=== PATIENT | male | born 2000 | race African-American/Black ===

== ENCOUNTER 2018-05-19 20:57 | Emergency (ER) | payer MEDICAID ==
--- NOTE | 2018-05-19 21:19 | EDM.PDOC ---
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 Is still bothering him, but he has not had the recommended surgery yet. Denies swelling. Knee clicks and pops often. No giving out. 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 - Related Data Allergies Allergy/AdvReac Type Severity Reaction Status Date / Time shellfish Allergy Hives Uncoded 05/19/18 21:20 Home Meds: Home Meds NK [No Known Home Meds] 05/19/18 [History] Review of Systems - Review of Systems Review Of Systems: See Below Constitutional: Reports: No Symptoms Musculoskeletal: Reports: Joint Pain (L knee) Skin: Reports: No Symptoms Neurological: Reports: No Symptoms ED EXAM, GENERAL - Physical Exam Exam: See Below Exam Limited By: No Limitations General Appearance: Alert, WD/WN, No Apparent Distress, Obese Extremities: Normal Inspection, Normal Range of Motion, Non-Tender, No Pedal Edema, Other (No clicking with flexion/extension while the foot is either externally or internally rotated. No joint line tenderness. No laxity. ). No: Joint Swelling, Limited Range of Motion, Increased Warmth, Redness Neurological: Alert, Oriented, CN II-XII Intact, Normal Cognition, No Motor/ Sensory Deficits Psychiatric: Normal Affect, Normal Mood Skin Exam: Warm, Dry, Intact, Normal Color, No Rash Departure - Departure Time of Disposition: 21:19 Disposition: Home, Self-Care 01 Condition: Good Clinical Impression: Knee pain, left Qualifiers: Chronicity: unspecified Qualified Code(s): M25.562 - Pain in left knee - Discharge Information *PRESCRIPTION DRUG MONITORING PROGRAM REVIEWED*: Not Applicable *COPY OF PRESCRIPTION DRUG MONITORING REPORT IN PATIENT ELIZABETH: Not Applicable Instructions: Knee Pain, Adult Referrals: PCP,None [Primary Care Provider] - Forms: ED Department Discharge Additional Instructions: Follow up with orthopedics for further evaluation and treatment.
== END 2018-05-19 21:30 | disposition home or self-care (01) ==
LOC: FB.ED 20:57
DX: M25.562 Pain in left knee (principal); Z91.013 Allergy to seafood
CPT/HCPCS: 99283